=== PATIENT | male | born 1965 | race Caucasian/White ===

== ENCOUNTER 2021-01-28 19:13 | Emergency (ER) | payer OTHER ==
[~2021-01-28 19:13] MED LIST: AMOXICILLIN875 MG PO; ASPIRIN81 MG PO; ATORVASTATIN CA40 MG PO; BASAGLAR INJ; BLOOD GLUCOSE1 EAC7 TD; CYCLOBENZAPRINE5 MG PO; HABITROL 21 MG P1 EA TOP; IBUPROFEN800 MG PO; IMDUR ER TAB 3030 MG PO; JANUVIA100 MG PO; KEFLEX CAP 500500 MG PO; LANTUS100 UNIT/1 SC; LIPITOR TAB 1010 MG PO; LISINOPRIL5 MG PO; LOPRESSOR 25 MG25 MG PO; MECLIZINE HCL25 MG PO; METFORMIN HCL1000 M1 PO; METFORMIN HCL500 MG PO; NEURONTIN 300300 MG PO; NITROSTAT 0.40.4 MG SL; NORCO 5-325 TA1 EACH PO; REQUIP1 MG PO; ROBAXIN 750 MG750 MG PO; ROBAXIN-750750 MG PO; SILVADENE20 GM TOP; VENTOLIN HFA 66.7 GM INH; VISTARIL 25 MG25 MG PO; ZOFRAN ODT 4 MG4 MG PO; ZOFRAN ODT 4 MG4 MG SL
[2021-01-28 21:21] LABS: HEMOGLOBIN 12.9 gm/dl (14.0-17.5); RED BLOOD COUNT 5.05 M/UL (4.20-5.50); WHITE BLOOD COUNT 4.5 K/UL (4.5-11.0)
[2021-01-28 21:51] LABS: BUN/CREATININE RATIO 24 (0-10)
[2021-01-30] MEDS ORDERED: GLUCOTROL5 MG PO (16:40)
== END 2021-01-29 01:15 | disposition home or self-care (01) ==
LOC: ER1 19:13
PROVIDERS: Physician Assistant
DX: S09.90XA Unspecified injury of head, initial encounter (principal); E11.65 Type 2 diabetes mellitus with hyperglycemia; I95.1 Orthostatic hypotension; I11.9 Hypertensive heart disease without heart failure; E11.9 Type 2 diabetes mellitus without complications; E78.5 Hyperlipidemia, unspecified; Z86.73 Personal history of transient ischemic attack (TIA), and cerebral infarction without residual deficits; Z88.8 Allergy status to other drugs, medicaments and biological substances; Z79.82 Long term (current) use of aspirin; Y04.2XXA Assault by strike against or bumped into by another person, initial encounter
CPT/HCPCS: 70450; 71045; 80053; 82550; 82553; 83874; 83880; 84484; 85025; 93005; 99284

== ENCOUNTER 2021-01-29 16:19 | Emergency (ER) | payer OTHER ==
[2021-01-30] MEDS ORDERED: GLUCOTROL5 MG PO (16:40)
== END 2021-01-29 18:38 | disposition home or self-care (01) ==
LOC: ER1 16:19
DX: E11.65 Type 2 diabetes mellitus with hyperglycemia (principal)
CPT/HCPCS: 82962; 99284

== ENCOUNTER 2021-01-30 13:30 | Emergency (ER) | payer OTHER ==
[2021-01-30] MEDS ORDERED: GLUCOTROL5 MG PO (16:40)
== END 2021-01-30 17:13 | disposition home or self-care (01) ==
LOC: ER1 13:30
DX: R73.9 Hyperglycemia, unspecified (principal)
CPT/HCPCS: 99284

== ENCOUNTER 2021-03-22 10:49 | Emergency (ER) | payer OTHER ==
[~2021-03-22 10:49] MED LIST changes: +GLUCOTROL5 MG PO
[2021-03-22 12:06] LABS: HEMOGLOBIN 12.9 gm/dl (14.0-17.5); RED BLOOD COUNT 5.01 M/UL (4.20-5.50); WHITE BLOOD COUNT 4.9 K/UL (4.5-11.0)
[2021-03-22 12:30] LABS: BUN/CREATININE RATIO 31 (0-10)
== END 2021-03-22 14:30 | disposition home or self-care (01) ==
LOC: ER1 10:49
PROVIDERS: Physician Assistant
DX: E11.65 Type 2 diabetes mellitus with hyperglycemia (principal); R53.1 Weakness
CPT/HCPCS: 70450; 71045; 80053; 81001; 82550; 82553; 82962; 83874; 84484; 85025; 93005; 99285

== ENCOUNTER 2021-05-20 14:51 | Emergency (ER) | payer OTHER ==
[2021-05-20 15:38] LABS: HEMOGLOBIN 12.3 gm/dl (14.0-17.5); RED BLOOD COUNT 4.45 M/UL (4.20-5.50); WHITE BLOOD COUNT 4.5 K/UL (4.5-11.0)
[2021-05-20 16:15] LABS: BUN/CREATININE RATIO 32 (0-10)
== END 2021-05-20 18:30 | disposition home or self-care (01) ==
LOC: ER1 14:51
PROVIDERS: Emergency Medicine
DX: I95.1 Orthostatic hypotension (principal); E11.65 Type 2 diabetes mellitus with hyperglycemia; I51.9 Heart disease, unspecified
CPT/HCPCS: 70450; 80053; 82550; 82553; 82962; 83874; 84484; 85025; 93005; 96374; 99284

== ENCOUNTER → 2021-06-09 | Outpatient (CLI) | payer OTHER | LOC: RAD 12:04 | DX: M54.2 Cervicalgia (principal); M54.9 Dorsalgia, unspecified; M25.572 Pain in left ankle and joints of left foot; M25.571 Pain in right ankle and joints of right foot; R05.9 Cough, unspecified; M47.812 Spondylosis without myelopathy or radiculopathy, cervical region; M47.814 Spondylosis without myelopathy or radiculopathy, thoracic region; M47.816 Spondylosis without myelopathy or radiculopathy, lumbar region | CPT/HCPCS: 71046; 72050; 72072; 72110; 73600 ==

== ENCOUNTER 2021-11-10 11:39 | Emergency (ER) | payer OTHER ==
[2021-11-10 13:09] LABS: HEMOGLOBIN 12.4 gm/dl (14.0-17.5); RED BLOOD COUNT 4.42 M/UL (4.20-5.50); WHITE BLOOD COUNT 6.5 K/UL (4.5-11.0)
[2021-11-10 13:38] LABS: BUN/CREATININE RATIO 30 (0-10)
[2021-11-10] MEDS ORDERED: KLOR-CON M2020 MEQ PO (16:04)
[2021-11-10] MEDS ORDERED: ZOFRAN ODT 4 MG4 MG SL (16:04)
== END 2021-11-10 17:00 | disposition home or self-care (01) ==
LOC: ER1 11:39
PROVIDERS: Emergency Medicine
DX: E87.6 Hypokalemia (principal); R11.2 Nausea with vomiting, unspecified; E11.9 Type 2 diabetes mellitus without complications
CPT/HCPCS: 80053; 82550; 82553; 83690; 84484; 85025; 96374; 99284; J2405